=== PATIENT | male | born 1965 | race African-American/Black ===

== ENCOUNTER 2017-12-24 01:19 | Emergency (ER) | payer SELFPAY, OTHER ==
[2017-12-24] MEDS: IPRATROPIUM (NEB) 0.5 MG/2.5 ML AMP INH (02:44)
[2017-12-24] MEDS: ALBUTEROL 0.083% (NEB) 2.5 MG/3 ML AMP HHN (02:45)
[2017-12-24 03:03] LABS: ADD MAN DIFF? NO
[2017-12-24] MEDS: AZITHROMYCIN 250 MG TAB PO (03:04)
[2017-12-24] MEDS: CEFTRIAXONE 1 GM/50 ML (PMX) 50 ML IVPB (03:04)
[2017-12-24 03:05] LABS: WHITE BLOOD COUNT 12.7 10^3/ul (4.8-10.8)
[2017-12-24 03:05] LABS: BASOPHIL # 0.1 10^3/ul (0.0-0.1); BASOPHILS % 0.4 % (0.0-2.0); EOSINOPHILS # 0.1 10^3/ul (0.0-0.5); EOSINOPHILS % 0.9 % (0.0-7.0); HEMATOCRIT 51.8 % (42.0-52.0); HEMOGLOBIN 17.2 g/dl (14.0-18.0); LYMPHOCYTES # 1.2 10^3/ul (0.8-2.9); LYMPHOCYTES % 9.2 % (15.0-51.0); MEAN CORPUSCULAR HEMOGLOBIN 30.1 pg (29.0-33.0); MEAN CORPUSCULAR HGB CONC 33.2 g/dl (32.0-37.0); MEAN CORPUSCULAR VOLUME 90.7 fl (82.0-101.0); MEAN PLATELET VOLUME 9.6 fl (7.4-10.4); MONOCYTE # 0.9 10^3/ul (0.3-0.9); MONOCYTES % 6.9 % (0.0-11.0); NEUTROPHIL # 10.4 10^3/ul (1.6-7.5); NEUTROPHILS % 82.1 % (39.0-77.0); PLATELET COUNT 181 10^3/UL (140-415); RED BLOOD COUNT 5.71 10^6/ul (4.70-6.10); RED CELL DISTRIBUTION WIDTH 14.6 % (11.5-14.5)
[2017-12-24 03:28] LABS: ALANINE AMINOTRANSFERASE 52 IU/L (13-69); ALBUMIN 3.9 g/dl (3.3-4.9); ALBUMIN/GLOBULIN RATIO 1.05; ALKALINE PHOSPHATASE 194 IU/L (42-121); ANION GAP 18 (8-16); ASPARTATE AMINO TRANSFERASE 52 IU/L (15-46); BILIRUBIN,INDIRECT 1.7 mg/dl (0-1.1); BILIRUBIN,TOTAL 1.7 mg/dl (0.2-1.3); BLOOD UREA NITROGEN 21 mg/dl (7-20); CALCIUM 8.8 mg/dl (8.4-10.2); CARBON DIOXIDE 19 mmol/L (21-31); CHLORIDE 106 mmol/L (97-110); CREATININE 1.21 mg/dl (0.61-1.24); GLUCOSE 114 mg/dl (70-220); POTASSIUM 4.1 mmol/L (3.5-5.1); SODIUM 139 mmol/L (135-144); TOTAL PROTEIN 7.6 g/dl (6.1-8.1)
[2017-12-24 03:33] LABS: LACTIC ACID 2.3 mmol/L (0.5-2.0)
== END 2017-12-24 05:32 | disposition home or self-care (01) ==
LOC: FTE 05:32
DX: F15.229 Other stimulant dependence with intoxication, unspecified (principal); I10 Essential (primary) hypertension; J45.909 Unspecified asthma, uncomplicated
CPT/HCPCS: 36415; 71046; 80053; 83605; 85025; 94664; 96374; 99284-25